=== PATIENT | female | born 1995 | race African-American/Black ===

== ENCOUNTER 2017-09-11 22:17 | Emergency (ER) | payer BC ==
[~2017-09-11] VITALS: Ht 167.6 cm; Wt 58.9 kg
[2017-09-11 22:19] VITALS: TEMP 36.5; Ht 167.6 cm; Wt 58.9 kg
[2017-09-11] MEDS ORDERED: KETOROLAC TROMETHAMINE 30 MG/ML VIAL IV STA (22:56)
[2017-09-11 23:01] LABS: BASO % 0.3 %; BASO ABS # 0.02 K/uL (0-0.2); EOS % 4.3 %; EOS ABS # 0.28 K/uL (0-0.5); HEMATOCRIT 35.4 % (37-47); HEMOGLOBIN 11.8 g/dL (12.0-16.0); IG# 0.01 K/uL (0.00-0.02); LYMPH % 29.8 %; LYMPH ABS # 1.94 K/uL (1.2-3.4); MEAN CELL VOLUME 67.9 fL (80-100); MEAN CORPUSCULAR HEMOGLOBIN 22.6 pg (25-34); MEAN CORPUSCULAR HGB CONC 33.3 g/dl (32-36); MEAN PLATELET VOLUME 9.4 fL (7.4-10.4); MONO % 8.4 %; MONO ABS # 0.55 K/uL (0.11-0.59); NEUT ABS # 3.71 K/uL (1.4-6.5); PLATELET COUNT 259 K/uL (130-400); RED CELL DISTRIBUTION WIDTH CV 15.1 % (11.5-14.5); RED CELL DISTRIBUTION WIDTH SD 37.2 fL (36.4-46.3); WHITE BLOOD COUNT 6.51 K/uL (4.8-10.8)
[2017-09-11 23:19] LABS: ALT/SGPT 13 U/L (12-78); BLOOD UREA NITROGEN 15 mg/dl (7-18); CALCIUM 8.6 mg/dl (8.5-10.1); CARBON DIOXIDE 26 mmol/L (21-32); CREATININE 0.98 mg/dl (0.60-1.20); GLUCOSE 80 mg/dl (70-99); LIPASE 335 U/L (73-393); POTASSIUM 3.8 mmol/L (3.5-5.1); SODIUM 139 mmol/L (136-145)
[2017-09-11 23:30] LABS: ALKALINE PHOSPHATASE 59 U/L (45-117); AST/SGOT 21 U/L (15-37); TOTAL PROTEIN 7.7 gm/dl (6.4-8.2)
--- NOTE | 2017-09-11 23:33 | EMERGENCY ROOM VISIT NOTE ---
History First contact with patient: 22:23 Chief Complaint: CHEST PAIN Stated Complaint: PAIN IN CHEST DURING A DEEP BREATH - PERIODICALLY Nursing Triage Summary: Pt c/o intermittent bilateral chest pain with deep breaths, worse for a few weeks. Pt denies cough or SOB, denies fever/chills. Pt states that pain seems worse with laying and sitting, not as bad when standing. Pt denies pain at this time. History of Present Illness The patient is a 21 year old female who presents to the Emergency Room with complaints of intermittent chest pain that has been going on for approximately 1 year. She describes it as a dull ache that is worse with deep inspiration and lying flat. She denies any shortness of breath. It is not worse with exertion. No cough or fever. She denies any nausea or vomiting. No dizziness or heart palpitations. She denies any known insect bites. She is on oral contraceptives. No recent long travel. Denies any calf pain. He does have a family history of blood clot Review of Systems 10 system review performed and negative unless noted in HPI or below Past Medical/Surgical History Otherwise healthy Social History Smoking Status: Never Smoker Marital Status: single Occupation Status: [employer] student Physical Exam Vital Signs Date Time Temp Pulse Resp B/P (MAP) Pulse Ox O2 Delivery O2 Flow Rate FiO2 09/11/17 23:13 96 Room Air 09/11/17 22:41 63 09/11/17 22:19 36.5 72 18 158/100 97 Room Air Physical Exam GENERAL: 21-year-old female, in no acute distress, nondiaphoretic, well- developed well-nourished. SKIN: The skin was without rashes, erythema, edema, or bruising. HEAD: Normocephalic atraumatic. NECK: Supple without nuchal rigidity. No lymphadenopathy. Cervical spine is nontender. No JVD. HEART: Regular rate and rhythm without murmurs gallops or rubs. No tenderness over the thorax LUNGS: Clear to auscultation bilaterally without wheezes, rales or rhonchi. No accessory muscle use. ABDOMEN: Positive bowel sounds x 4.Soft, nontender, without organomegaly. No guarding or rebound tenderness. MUSCULOSKELETAL: No muscle atrophy, erythema, or edema noted. Strength 5/5 throughout. NEURO: Patient was alert and oriented to person place and time. Normal sensation to touch. No focal neurological deficits. Medical Decision & Procedures Laboratory Results 09/11/17 22:36 Red Blood Count 5.21, Mean Corpuscular Volume 67.9, Mean Corpuscular Hemoglobin 22.6, Mean Corpuscular Hemoglobin Concent 33.3, Mean Platelet Volume 9.4, Neutrophils (%) (Auto) 57.0, Lymphocytes (%) (Auto) 29.8, Monocytes (%) (Auto) 8.4, Eosinophils (%) (Auto) 4.3, Basophils (%) (Auto) 0.3, Neutrophils # (Auto) 3.71, Lymphocytes # (Auto) 1.94, Monocytes # (Auto) 0.55, Eosinophils # (Auto) 0.28, Basophils # (Auto) 0.02 09/11/17 22:36 Test 09/11/17 22:36 09/11/17 23:10 White Blood Count 6.51 K/uL (4.8-10.8) Red Blood Count 5.21 M/uL (4.2-5.4) Hemoglobin 11.8 g/dL (12.0-16.0) Hematocrit 35.4 % (37-47) Mean Corpuscular Volume 67.9 fL (80-100) Mean Corpuscular Hemoglobin 22.6 pg (25-34) Mean Corpuscular Hemoglobin Concent 33.3 g/dl (32-36) Platelet Count 259 K/uL (130-400) Mean Platelet Volume 9.4 fL (7.4-10.4) Neutrophils (%) (Auto) 57.0 % Lymphocytes (%) (Auto) 29.8 % Monocytes (%) (Auto) 8.4 % Eosinophils (%) (Auto) 4.3 % Basophils (%) (Auto) 0.3 % Neutrophils # (Auto) 3.71 K/uL (1.4-6.5) Lymphocytes # (Auto) 1.94 K/uL (1.2-3.4) Monocytes # (Auto) 0.55 K/uL (0.11-0.59) Eosinophils # (Auto) 0.28 K/uL (0-0.5) Basophils # (Auto) 0.02 K/uL (0-0.2) RDW Standard Deviation 37.2 fL (36.4-46.3) RDW Coefficient of Variation 15.1 % (11.5-14.5) Immature Granulocyte % (Auto) 0.2 % Immature Granulocyte # (Auto) 0.01 K/uL (0.00-0.02) Microcytosis PRESENT D-Dimer 200 ug/L FEU (0-500) Anion Gap 8.0 mmol/L (3-11) Est Creatinine Clear Calc Drug Dose 83.0 ml/min Estimated GFR () 94.2 Estimated GFR (Non- 81.3 BUN/Creatinine Ratio 14.9 (10-20) Calcium Level 8.6 mg/dl (8.5-10.1) Total Bilirubin 1.0 mg/dl (0.2-1) Aspartate Amino Transf (AST/SGOT) 21 U/L (15-37) Alanine Aminotransferase (ALT/SGPT) 13 U/L (12-78) Alkaline Phosphatase 59 U/L (45-117) Troponin I < 0.015 ng/ml (0-0.045) Total Protein 7.7 gm/dl (6.4-8.2) Albumin 4.0 gm/dl (3.4-5.0) Globulin 3.7 gm/dl (2.5-4.0) Albumin/Globulin Ratio 1.1 (0.9-2) Lipase 335 U/L (73-393) Thyroid Stimulating Hormone (TSH) 1.420 uIu/ml (0.300-4.500) Lyme Disease IgG Antibody NEG (NEG) Lyme Disease IgM Antibody NEG (NEG) Urine Test NEG (NEG) ECG Per My Interpretation Indication: chest pain Rate (beats per minute): 61 Rhythm: normal sinus, other (Inverted T waves noted in V1 and V2) ED Course Patient was seen and examined Vital signs including blood pressure were reviewed medications list was verified with patient Labs were obtained, and a saline lock was established The patient was given Toradol 30 mg IV The case was discussed with my supervising physician who personally reviewed the x-ray and EKG. The patient was reassessed and resting comfortably. She had no pain in the emergency department. We discussed her workup. She voiced understanding, and was comfortable being discharged home. I reviewed discharge instructions the patient. They voiced understanding and had no further questions. Medical Decision Differential diagnosis: Acute myocardial infarction, cardiac arrhythmia, anemia , thyroid abnormality, pneumothorax, pneumonia, bronchitis, pericarditis, electrolyte imbalance, pulmonary embolus, pancreatitis, cholecystitis This patient is a 21-year-old female that presents to the emergency department with intermittent chest pain worse with lying flat and deep inspiration. Her exam was unremarkable. EKG reveals inverted T waves in V1 and V2, which is likely benign in the juvenile patient. Her troponin is negative. Chest x-ray within normal limits. Her d-dimer is also negative. A Lyme screen was within normal limits. The etiology of her pain is unclear. I believe she is stable for discharge with close follow-up. She is comfortable with this plan. She agrees to return with any new or worsening symptoms. Medication Reconcilliation Current Medication List: was personally reviewed by me Blood Pressure Screening Patient's blood pressure: Elevated blood pressure Blood pressure disposition: Referred to PCP Impression Primary Impression: Chest pain Departure Information Dispostion Home / Self-Care Condition GOOD Referrals No Doctor, Assigned (PCP) Michael Palacio M.D. Patient Instructions My [facility] Additional Instructions You have been evaluated in the emergency department for chest pain. The cause of this at this point is unclear. Please follow up with a consumer educator. Call tomorrow morning for a follow-up appointment. A number has been provided. Please do not hesitate to return to the emergency department with any new, worsening or concerning symptoms; especially, severe pain, difficulty breathing or fever of 103 or greater School Instructions Return To School: 1 day
[2017-09-12 00:25] VITALS: BP 129/84; PULSE 58; O2SAT 98
--- NOTE | 2017-09-12 07:38 | DIAGNOSTIC IMAGING REPORT ---
CHEST ONE VIEW PORTABLE HISTORY: Atypical chest pain. COMPARISON: None. FINDINGS: The lungs are clear. The heart is borderline enlarged. No pleural effusions. No pneumothorax. IMPRESSION: Borderline cardiomegaly. Otherwise, no acute process within the chest. Electronically signed by: Ye Perez M.D. 09/12/2017 7:37 AM Dictated Date/Time: 09/12/2017 7:36 AM
== END 2017-09-12 00:40 | disposition home or self-care (01) ==
LOC: C.EDB 22:18 → C.EDA 09-12 00:40
DX: R07.9 Chest pain, unspecified (principal); R03.0 Elevated blood-pressure reading, without diagnosis of hypertension; Z79.3 Long term (current) use of hormonal contraceptives; Z83.2 Family history of diseases of the blood and blood-forming organs and certain disorders involving the immune mechanism